=== PATIENT | female | born 1940 | race Hispanic/Latino ===

== ENCOUNTER 2017-05-02 09:07 | Observation (INO) | payer MEDICARE, OTHER ==
[2017-05-02] MEDS ORDERED: Albuterol-Ipratrop 3 mg / 0.5 (3 ml) UD IH STA (09:37)
--- NOTE | 2017-05-02 09:55 | ED PDOC ---
Arrival/HPI - General Chief Complaint: Shortness Of Breath Time Seen by Provider: 05/02/17 09:37 Historian: Patient - History of Present Illness Narrative History of Present Illness (Text): 05/02/17 09:25 Shoshana Fisher is a 76 year old female, whose past medical history includes COPD, cardiac defibrillator, [place], and peripheral vascular disease on Lasix, who presents to the emergency department complaining of exertional shortness of breath that began two days ago. Patient states that she experiences associated persistent dry cough, occasional wheezing/audible sounds, and weakness. Patient notes that she is visiting from [place] since 04/22 and has on oxygen tank at home that she uses as needed in [place]. Patient states her last cardiac exam was prior to coming to [place] on 04/21. Patient denies any fever/chills/sweats, chest pain/palpitations, abdominal pain/nausea/vomiting, numbness/tingling, urinary/bowel changes/complaints, fall/trauma/sick contact. 05/02/17 13:27 Time/Duration: < week (2 days) Symptom Onset: Gradual Symptom Course: Unchanged Context: Home Past Medical History - Provider Review Nursing Documentation Reviewed: Yes - Travel History Have you recently traveled outside [place] w/in the past 3 mons?: No - Reproductive Menopause: Yes - Cardiac Hx Cardiac Disorders: Yes Hx Hypertension: Yes - Pulmonary Hx Respiratory Disorders: Yes Hx Chronic Obstructive Pulmonary Disease (COPD): Yes - Psychiatric Hx Substance Use: No Family/Social History - Physician Review Nursing Documentation Reviewed: Yes Family/Social History: No Known Family HX Smoking Status: Former Smoker Hx Alcohol Use: No Hx Substance Use: No Allergies/Home Meds Allergies/Adverse Reactions: Allergies No Known Allergies Allergy (Verified 05/02/17 09:26) Home Medications: Home Meds Medication Instructions Recorded Confirmed Atorvastatin [Lipitor] 10 mg PO DAILY 05/02/17 05/02/17 Digoxin [Lanoxin] 0.125 mg PO DAILY 05/02/17 05/02/17 Losartan [Cozaar] 50 mg PO DAILY 05/02/17 05/02/17 Warfarin [Coumadin] 2 mg PO DAILY 05/02/17 05/02/17 Warfarin [Coumadin] 4 mg PO DAILY 05/02/17 05/02/17 Review of Systems - Physician Review All systems were reviewed & negative as marked: Yes - Review of Systems Constitutional: absent: Fevers, Night Sweats Eyes: absent: Vision Changes ENT: absent: Hearing Changes Respiratory: SOB (exertional), Cough (persistent dry cough), Wheezing ( occasional) Cardiovascular: absent: Chest Pain Gastrointestinal: absent: Abdominal Pain Genitourinary Female: absent: Dysuria, Vaginal Discharge Musculoskeletal: absent: Arthralgias, Back Pain, Neck Pain Skin: absent: Rash, Pruritis Neurological: absent: Headache, Dizziness Endocrine: absent: Diaphoresis Hemo/Lymphatic: absent: Adenopathy Psychiatric: absent: Anxiety, Depression Physical Exam Vital Signs Reviewed: Yes Vital Signs Temp Pulse Resp BP Pulse Ox 05/02/17 13:11 65 18 142/69 96 05/02/17 11:49 145/71 05/02/17 11:43 61 18 145/71 96 05/02/17 09:37 22 94 L 05/02/17 09:24 98.1 F 64 22 147/84 92 L Temperature: Afebrile Blood Pressure: Hypertensive (mild hypertension noted) Pulse: Regular Respiratory Rate: Tachypneic (RR > 20s) Appearance: Positive for: Well-Appearing, Non-Toxic, Other (uncomfortable appearing, mild distress due to respiration; alert/awake, GCS = 15, oriented x 3 , cooperative) Pain Distress: Mild Mental Status: Positive for: Alert and Oriented X 3 - Systems Exam Head: Present: Atraumatic, Normocephalic Pupils: Present: PERRL, Other (no photophobia, sclera anicteric, no nystagmus) Extroacular Muscles: Present: EOMI Conjunctiva: Present: Normal Mouth: Present: Moist Mucous Membranes, Other (intact dentitions) Pharnyx: Present: Normal Neck: Present: Normal Range of Motion, Trachea Midline. No: JVD Respiratory/Chest: Present: Clear to Auscultation (poor airway exchange; decr breath sounds b/l, no wheezing/rales/rhonchi; + mild tachypenia, no accessory muscle use noted). No: Respiratory Distress, Accessory Muscle Use Cardiovascular: Present: Regular Rate and Rhythm, Normal S1, S2. No: Murmurs Abdomen: Present: Normal Bowel Sounds. No: Tenderness, Distention, Peritoneal Signs Back: Present: Normal Inspection Upper Extremity: Present: Normal Inspection, Normal ROM, NORMAL PULSES, Capillary Refill < 2s. No: Cyanosis, Edema Lower Extremity: Present: Normal Inspection, NORMAL PULSES, Normal ROM. No: Edema, CALF TENDERNESS, Nelli's Sign Neurological: Present: GCS=15, CN II-XII Intact, Speech Normal Skin: Present: Warm, Dry, Normal Color, Other (cap refill < 1sec, no ulcerations , no petechiae). No: Rashes Psychiatric: Present: Alert, Oriented x 3, Normal Insight, Normal Concentration Medical Decision Making ED Course and Treatment: 05/02/17 09:57 Impression: 76 year old female complaining of 2 day duration of exertional shortness of breath with persistent dry cough, occasional wheezing/audible sounds, and weakness. Differential Diagnosis included but are not limited to: Cardiac Cause (i.e. ACS vs. Arrythmia, Heart Failure etc.) Concern of DVT/PE. Concern for infectious cause or possible COPD exacerbation/ inflammatory disorder Plan: -- EKG -- Chest X-ray -- Angio Chest CT -- VBG -- Urinalysis -- Labs -- Duoneb and Ecotrin -- Reassess and disposition Progress Notes: 05/02/17 11:25 pt is currently chest pain free 05/02/17 13:30 pt remained comfortable pt remained chest pain free pt is made aware of her medical results i recommend for patient to be admitted to the hospital for further medical care/ evaluation/treatment pt is in agreement for admission/observation I spoke to television presenter PMD, Dr Adrian, made aware, agrees with admission/ observation placement 05/02/17 13:36 Reassessment Condition: Improved - Lab Interpretations Lab Results: 05/02/17 10:07 05/02/17 10:07 Lab Results 05/02/17 10:56: PT 36.7 H, INR 3.26 H, APTT 44.2 H 05/02/17 10:50: Influenza Typ A,B (EIA) Negative for flu a/b 05/02/17 10:50: Urine Color Yellow, Urine Appearance Cloudy, Urine pH 6.0, Ur Specific Manson 1.020, Urine Protein Trace H, Urine Glucose (UA) Negative, Urine Ketones Negative, Urine Blood Trace-lysed H, Urine Nitrate Negative, Urine Bilirubin Negative, Urine Urobilinogen 0.2, Ur Leukocyte Esterase Large H , Urine RBC 0 - 2, Urine WBC 15 - 20, Ur Epithelial Cells Many, Urine Bacteria Mod 05/02/17 10:07: Sodium 143, Chloride 108 H, Potassium 4.2, Carbon Dioxide 25, Anion Gap 14, BUN 15, Creatinine 1.0, Est GFR ( Amer) > 60, Est GFR (Non- Af Amer) 54, Random Glucose 92, Calcium 9.2, Total Bilirubin 1.0, AST 19, ALT 17 , Alkaline Phosphatase 57, Lactate Dehydrogenase 584, Total Creatine Kinase 54, Troponin I < 0.01, NT-Pro-B Natriuret Pep 1960 H, Total Protein 6.6, Albumin 3.6 , Globulin 3.0, Albumin/Globulin Ratio 1.2 05/02/17 10:07: pO2 46, VBG pH 7.35, VBG pCO2 47.0, VBG HCO3 25.9, VBG Total CO2 27.3, VBG O2 Sat (Calc) 84.8 H, VBG Base Excess -0.2 L, VBG Potassium 5.0, Sodium 139.0, Chloride 109.0 H, Glucose 93, Lactate 1.5, FiO2 21.0, Venous Blood Potassium 5.0 05/02/17 10:07: WBC 5.5, RBC 4.12, Hgb 12.4, Hct 39.6, MCV 96.1, MCH 30.1, MCHC 31.3, RDW 14.4, Plt Count 335, MPV 10.7, Gran % 66.5, Lymph % (Auto) 18.4 L, [place] % (Auto) 10.0 H, Eos % (Auto) 4.6, Baso % (Auto) 0.5, Gran # 3.64, Lymph # 1.0 L, [place] # 0.6, Eos # 0.3, Baso # 0.03 I have reviewed the lab results: Yes (elevated BNP) Interpretation: Abnormal lab values (elevated BNP) - RAD Interpretation Radiology Orders: 05/02/17 09:37 ANGIO CHEST PE PROTOCOL [CT] Stat CHEST TWO VIEWS (PA/LAT) [RAD] Stat - EKG Interpretation EKG Interpretation (Text): 05/02/17 11:27 paced rhythm at 60 bpm, LAD, no ectopy, inverted T in leads V3-6, ABNL EKG; no old ekg to compare with Interpreted by ED Physician: Yes Type: 12 lead EKG Comparison: No previous EKG avail. - Medication Orders Current Medication Orders: Discontinued Medications Albuterol/Ipratropium (Duoneb 3 Mg/0.5 Mg (3 Ml) Ud) 3 ml IH STAT STA Stop: 05/02/17 09:38 Last Admin: 05/02/17 09:37 Dose: 3 ml Aspirin (Ecotrin) 81 mg PO STAT STA Stop: 05/02/17 09:38 Last Admin: 05/02/17 09:37 Dose: 81 mg Furosemide (Lasix) 40 mg IVP STAT STA Stop: 05/02/17 11:14 Last Admin: 05/02/17 11:49 Dose: 40 mg MAR Blood Pressure Document 05/02/17 11:49 RG (Rec: 05/02/17 11:53 [id number]) Blood Pressure Blood Pressure (100/60-150/90) 145/71 IVP Administration Document 05/02/17 11:49 RG (Rec: 05/02/17 11:53 [id number]) Charges for Administration # of IVP Administrations 1 - Scribe Statement The provider has reviewed the documentation as recorded by the Mendyibaba Castillo Provider Scribe Attestation: All medical record entries made by the Scribe were at my direction and personally dictated by me. I have reviewed the chart and agree that the record accurately reflects my personal performance of the history, physical exam, medical decision making, and the department course for this patient. I have also personally directed, reviewed, and agree with the discharge instructions and disposition. Disposition/Present on Arrival - Present on Arrival Any Indicators Present on Arrival: No History of DVT/PE: Yes History of Uncontrolled Diabetes: No Urinary Catheter: No History of Decub. Ulcer: No History Surgical Site Infection Following: None - Disposition Have Diagnosis and Disposition been Completed?: Yes Diagnosis: Acute on chronic diastolic CHF (congestive heart failure), Shortness of breath on exertion Disposition: HOSPITALIZED Disposition Time: 13:30 Patient Plan: Admission, Observation Condition: STABLE Discharge Instructions (ExitCare): Heart Failure (ED) Referrals: PCP,NO [Primary Care Provider] - Follow up with primary Forms: [email or web address] (K[place]akh)
[2017-05-02 10:19] LABS: VENOUS BLOOD GAS BASE EXCESS -0.2 mmol/L (0.0-2.0); VENOUS BLOOD PH 7.35 (7.32-7.43)
[2017-05-02 10:20] LABS: BASO # 0.03 K/mm3 (0.0-2.0); BASO % 0.5 % (0.0-3.0); EOS # 0.3 (0.0-0.7); EOS % 4.6 % (1.5-5.0); GRAN # 3.64 (1.4-6.5); GRAN % 66.5 % (50.0-68.0); HEMATOCRIT 39.6 % (36.0-48.0); LYMPH % 18.4 % (22.0-35.0); MEAN CELL VOLUME 96.1 fl (80.0-105.0); MEAN CORPUSCULAR HEMOGLOBIN 30.1 pg (25.0-35.0); MEAN CORPUSCULAR HGB CONC 31.3 g/dl (31.0-37.0); MEAN PLATELET VOLUME 10.7 fl (7.0-11.0); MONO # 0.6 (0.1-0.6); RED CELL DISTRIBUTION WIDTH 14.4 % (11.5-14.5); WHITE BLOOD COUNT 5.5 10^3/ul (4.5-11.0)
[2017-05-02 10:52] LABS: ALB/GLOB RATIO 1.2 (1.1-1.8); ALKALINE PHOSPHATASE 57 U/L (38-126); ALT/SGPT 17 U/L (7-56); AST/SGOT 19 U/L (14-36); BLOOD UREA NITROGEN 15 mg/dL (7-21); CALCIUM 9.2 mg/dL (8.4-10.5); CARBON DIOXIDE 25 mmol/L (21-33); CHLORIDE 108 mmol/L (98-107); GFR AFRICAN-AMERICAN > 60; GLUCOSE,RANDOM 92 mg/dL (70-110); POTASSIUM 4.2 mmol/L (3.6-5.0); SODIUM 143 mmol/L (132-148); TOTAL PROTEIN 6.6 g/dL (5.8-8.3)
[2017-05-02 11:01] LABS: URINE BILIRUBIN NEGATIVE (NEGATIVE); URINE BLOOD TRACE-LYSED (NEGATIVE); URINE GLUCOSE (UA) NEGATIVE (NEGATIVE); URINE KETONE NEGATIVE (NEGATIVE); URINE LEUKOCYTE ESTERASE LARGE Leu/uL (NEGATIVE); URINE PROTEIN TRACE mg/dL (<30 mg/dL); URINE UROBILINOGEN 0.2 E.U./dL (<1 E.U./dL)
[2017-05-02 11:02] LABS: TROPONIN I < 0.01 ng/mL
[2017-05-02 11:02] LABS: URINE COLOR YELLOW (YELLOW)
[2017-05-02 11:03] LABS: URINE APPEARANCE CLOUDY (CLEAR)
[2017-05-02 11:13] LABS: INR 3.26 (0.93-1.08); PARTIAL THROMBOPLASTIN TIME 44.2 Seconds (25.1-36.5)
[2017-05-02 11:23] LABS: URINE BACTERIA MOD (NEG); URINE RBC 0 - 2 /hpf (0-2); URINE WBC 15 - 20 /hpf (0-6)
[2017-05-02 11:26] LABS: URINE EPITHELIAL CELLS MANY /hpf (0-5)
[2017-05-02] MEDS ORDERED: Iohexol 350 MG/100 ML VIAL ONE (11:47)
--- NOTE | 2017-05-02 12:47 | CT ---
PROCEDURE: CT Chest with contrast (Pulmonary Angiogram) HISTORY: exertional COMPARISON: None available. TECHNIQUE: Axial computed tomography images were obtained of the chest in the pulmonary arterial phase of enhancement. Coronal and sagittal reformatted images were created and reviewed. Maximum intensity projection (MIP) reconstructed images in the following planes: Coronal and sagittal projections Intravenous contrast dose: 100 cc Omnipaque 300 Mean Hounsfield unit values in the main pulmonary artery: 423.51 Radiation dose: Total exam DLP = 355.64 mGy-cm. This CT exam was performed using one or more of the following dose reduction techniques: Automated exposure control, adjustment of the mA and/or kV according to patient size, and/or use of iterative reconstruction technique. FINDINGS: PULMONARY ARTERIES: Unremarkable. No pulmonary embolism. AORTA: No acute findings. No thoracic aortic aneurysm. LUNGS: Unremarkable. No nodule, mass or pulmonary consolidation. PLEURAL SPACES: Unremarkable. No effusion or pneuomothorax. HEART: No radiographic findings to suggest acute or significant cardiovascular disease. Position/ configuration of pacemaker device: Satisfactory. No pericardial effusion is identified. LYMPH NODES: No lymphadenopathy. BONES, CHEST WALL: Unremarkable. No fracture or destructive lesion OTHER FINDINGS: Unremarkable. IMPRESSION: Unremarkable CT pulmonary angiogram. No pulmonary embolus.
--- NOTE | 2017-05-02 13:34 | RAD ---
HISTORY: SOB, hx of DVT; coughing COMPARISON: None. TECHNIQUE: Chest PA and lateral FINDINGS: LUNGS: No active pulmonary disease. PLEURA: No significant pleural effusion identified. No pneumothorax apparent. CARDIOVASCULAR: Position/ configuration of pacemaker radiographic findings to suggest acute or significant cardiovascular disease. OSSEOUS STRUCTURES: No significant abnormalities. VISUALIZED UPPER ABDOMEN: Normal. OTHER FINDINGS: None. IMPRESSION: No active disease.
[2017-05-02] MEDS ORDERED: Albuterol-Ipratrop 3 mg / 0.5 (3 ml) UD IH PRN (15:23)
[2017-05-02] MEDS: MethylPREDNISolone 40 mg Vial IV SCH ×2 (16:36→21:53)
[2017-05-02] MEDS: Digoxin 125 mcg (0.125 mg) Tab PO SCH (16:37)
[2017-05-02 18:09] VITALS: BMI 25.5
[2017-05-02] MEDS ORDERED: Influenza Vaccine 60 mcg/0.5 mL SYR (4YR UP) IM ONE (18:09)
[2017-05-02] MEDS ORDERED: Pneumococcal 23-Valent Vaccine IM ONE (18:09)
[2017-05-02 18:45] VITALS: RESP 20
[2017-05-02] MEDS: Levalbuterol 1.25 MG/3 ML Inhal Soln UD IH SCH (20:20)
--- NOTE | 2017-05-02 20:25 | HP ---
HISTORY OF PRESENT ILLNESS: Patient is 76-year-old who is visiting her family for [place], developed shortness of breath with cough and congestion. Denies any fever or chills. Denies any hemoptysis. No hematemesis. She has been doing okay, but for the last 2 to 3 days, has shortness of breath, got worse, so her family brought her to emergency room for further evaluation. Patient does complain of dry cough associated with wheezing and complained of generalized weakness. Patient states she is visiting her family from [place] and she has been here since April 22. She does have oxygen at home. PAST MEDICAL HISTORY: Significant for, 1. COPD. 2. Cardiomyopathy. 3. Status post defibrillator placement. 4. Coronary artery disease status post angioplasty. 5. Severe peripheral vascular disease. ALLERGIES: SHE IS NOT ALLERGIC TO ANY MEDICATION. MEDICATION: At home, she is on Coumadin 4 mg daily, losartan 50 mg daily, digoxin 0.125 daily, and Lipitor 10 mg daily. SOCIAL HISTORY: She is a former heavy smoker. Denies smoking any more. REVIEW OF SYSTEMS: Generalized weakness, cough, congestion. PHYSICAL EXAMINATION: GENERAL: She is awake, alert, oriented. She has shortness of breath. VITAL SIGNS: She is afebrile, pulse 62, respiration 18, blood pressure 127/66. LUNGS: Bilateral expiratory rhonchi. HEART: S1, S2 audible. ABDOMEN: Soft, nontender. No rebound or guarding. NEUROLOGICAL: Patient is awake, alert, oriented, communicative. LABORATORY EXAMINATION: WBC is 5.5, hemoglobin 12.4, hematocrit 39.6, platelet 339. PT 36.27, INR 3.26. Chemistry: Sodium 143, potassium 4.2, chloride 108, CO2 of 25, BUN 15, creatinine 1.0, blood sugar of 92. LFTs are within normal limits. BNP 1960. Urinalysis shows large leukocyte. Flu test is negative and her CT scan of the chest negative for pulmonary embolism and x-ray, chest, no active disease. ASSESSMENT: 1. Chronic obstructive pulmonary disease exacerbation. 2. [id number] congestive heart failure. 3. Cardiomyopathy. 4. Hypertension. 5. Hyperlipidemia. PLAN: Patient will be admitted on telemetry. We will give IV steroid and we will give nebulizer treatment. Hold Coumadin for today. Resume her medication. We will follow up the patient in a.m. Hola Adrian MD
[2017-05-02] MEDS ORDERED: MethylPREDNISolone 40 mg Vial IV SCH (22:00)
[2017-05-03] MEDS: Levalbuterol 1.25 MG/3 ML Inhal Soln UD IH SCH ×3 (01:41→13:51)
[2017-05-03] MEDS ORDERED: Pantoprazole 40 mg EC Tab PO SCH (06:30)
[2017-05-03] MEDS: MethylPREDNISolone 40 mg Vial IV SCH (06:34)
[2017-05-03 07:38] VITALS: BP 133/84; TEMP 97.3; O2SAT 97
[2017-05-03 07:56] LABS: INR 2.91 (0.93-1.08)
[2017-05-03 07:58] LABS: GRAN # 3.81 (1.4-6.5); HEMATOCRIT 41.2 % (36.0-48.0); LYMPH # 0.6 (1.2-3.4); LYMPH % 14.1 % (22.0-35.0); MEAN CELL VOLUME 95.6 fl (80.0-105.0); MEAN CORPUSCULAR HEMOGLOBIN 29.9 pg (25.0-35.0); MEAN CORPUSCULAR HGB CONC 31.3 g/dl (31.0-37.0); MEAN PLATELET VOLUME 10.1 fl (7.0-11.0); MONO % 0.9 % (1.0-6.0); RED CELL DISTRIBUTION WIDTH 13.7 % (11.5-14.5); WHITE BLOOD COUNT 4.5 10^3/ul (4.5-11.0)
[2017-05-03 08:21] LABS: ALB/GLOB RATIO 1.2 (1.1-1.8); BILIRUBIN,TOTAL 0.8 mg/dL (0.2-1.3); CALCIUM 9.4 mg/dL (8.4-10.5); POTASSIUM 4.8 mmol/L (3.6-5.0); TOTAL PROTEIN 6.9 g/dL (5.8-8.3)
--- NOTE | 2017-05-03 09:47 | CARD ---
APPROVED REPORT EKG Measurement Heart [id number] ND [id number] <Conclusion> Electronic ventricular pacemaker: 100 % V. Paced and A Sensed
[2017-05-03] MEDS: Digoxin 125 mcg (0.125 mg) Tab PO SCH (10:00)
[2017-05-03 10:15] VITALS: PULSE 61
[2017-05-03 11:39] VITALS: PULSE 63
--- NOTE | 2017-05-04 05:05 | DS ---
HISTORY OF PRESENT ILLNESS: The patient is 76-year-old, seen and examined, sitting in chair, seems to be comfortable. Minimal shortness of breath, wants to go home for [place]. She states she came all the way from [place], not to be in the hospital. No nausea, vomiting, or diarrhea. No fever or chills. She states she feels 100% better. PHYSICAL EXAMINATION: VITAL SIGNS: She is afebrile, pulse 63, respirations 20, blood pressure 133/84. LUNGS: Bilateral fair airflow. No rhonchi or crackle. HEART: S1 and S2 audible. ABDOMEN: Soft, nontender. No rebound. No guarding. NEUROLOGIC: The patient is awake, alert, oriented, communicative. LABORATORY EXAMINATION: WBC is 4.5, hemoglobin 12.9, hematocrit 41.2, platelets of 322. PT 32.7 and INR 2.91. Chemistry: Sodium 141, potassium 4.8, chloride 104, CO2 of 28, BUN 20, creatinine 1.1, blood sugar of 143. Urinalysis is unremarkable. Digoxin level is 0.7. Flu test is negative. ASSESSMENT: 1. Chronic obstructive pulmonary disease exacerbation. 2. Bronchospasm. 3. Hyperlipidemia. 4. Hypertension. 5. History of deep venous thrombosis. 6. Peripheral vascular disease. PLAN: The patient will get 2 mg of Coumadin today. She is being discharged home on Levaquin 500 daily. I arranged for nebulizer treatment and nebulizer machine. She is given Medrol Dosepak. She will follow with her PMD. She was told that if at any point she has chest pain, shortness of breath or palpitation, she can come back. Hola Adrian MD
== END 2017-05-03 15:06 | disposition home or self-care (01) ==
LOC: ED 09:07 → ERH 13:31 → 3RNO 15:58
PROVIDERS: ADMIT Internal Medicine; ATTEND Internal Medicine
DX: I11.0 Hypertensive heart disease with heart failure (principal); I50.33 Acute on chronic diastolic (congestive) heart failure; J44.1 Chronic obstructive pulmonary disease with (acute) exacerbation; J98.01 Acute bronchospasm; I25.10 Atherosclerotic heart disease of native coronary artery without angina pectoris; I73.9 Peripheral vascular disease, unspecified; I42.9 Cardiomyopathy, unspecified; R53.1 Weakness; E78.5 Hyperlipidemia, unspecified; I25.2 Old myocardial infarction; Z99.81 Dependence on supplemental oxygen; Z86.718 Personal history of other venous thrombosis and embolism; Z95.810 Presence of automatic (implantable) cardiac defibrillator; Z98.61 Coronary angioplasty status; Z79.01 Long term (current) use of anticoagulants; Z79.899 Other long term (current) drug therapy; Z87.891 Personal history of nicotine dependence
CPT/HCPCS: 36415; 71020; 71275; 80053; 80162; 81001; 82550; 82803; 83615; 83880; 84484; 85025; 85610; 85730; 87086; 87181; 87804; 93005; 94640; 96374; 96375; 96376; 99285; G0378; J1940; J2920; Q9967